=== PATIENT | female | born 1990 | race Two or more races ===

== ENCOUNTER 2020-03-04 19:07 | Emergency (ER) | payer SELFPAY ==
[~2020-03-04] VITALS: Ht 162.6 cm; Wt 63.5 kg
[2020-03-04 19:24] VITALS: BP 118/72
--- NOTE | 2020-03-04 19:24 | NUR ---
ED Nurse Note: pt ambulatd into ed from home CO right toe pain d/t previous s/p abcess cx by s/p toe nail grown improperly. Pt states pain 6/10 and states that toe still causes significant discomfort when ambulating. Pt denies taking meme medication or antibiotic d/t lack of medical insurance. Awaiting ERMD at bedside. pt vss no ss of distress noted. pt aao x 4, tamazight speaking only.
--- NOTE | 2020-03-04 19:30 | NUR ---
ED Nurse Note: ERMD at beside.[employer] front office supervisor utilized d/t language barrier. [employer] name Leighton, #[id number]. Pt informed of plan of care and was given instructions for care at home.
[2020-03-04] MEDS ORDERED: CEPHALEXIN500 MG ORAL (19:41)
[2020-03-04 19:45] VITALS: BP 118/72
--- NOTE | 2020-03-04 19:45 | Emergency Room Report ---
History of Present Illness General Chief Complaint: Skin Rash/Abscess Source: Patient Present Illness HPI Disclaimer: Please note that this report is being documented using DRAGON technology. This can lead to erroneous entry secondary to incorrect interpretation by the dictating instrument. HPI: 21-year-old female presents for evaluation of a foot infection. 2 weeks ago the patient was cutting her toenails and cut the lateral aspect of the right great toe too short and eventually ripping off the lateral corner of it. She has been cleaning with peroxide. Notes that it was initially healing however she has had worsening pain and redness over the lateral aspect of the toe. Today she felt there was a retained piece of nail that she tried to remove. She caused some bleeding and brought in for evaluation. Denies tracking erythema, fever, chills, swelling. No other injury. Allergies: Coded Allergies: No Known Allergies (Unverified , 03/04/20) COVID-19 Screening Contact w/high risk pt: No Recent Travel to affected area: No Experienced COVID-19 symptoms?: No Patient History Past Surgical History: none Pertinent Family History: none Last Menstrual Period: 02/10/20 Nursing Documentation-[facility] Past Medical History: No Stated History Review of Systems All Other Systems: negative except mentioned in HPI Physical Exam Vital Signs Date Time Temp Pulse Resp B/P (MAP) Pulse Ox O2 Delivery O2 Flow Rate FiO2 03/04/20 19:14 98.4 66 18 118/72 (87) 96 Room Air General: Awake and alert, no acute distress HEENT: NC/AT. EOMI. Resp: Normal work of breathing Skin: Intact. The lateral corner of the toenail has avulsed on the right great toe. Minor bruising. Surrounding erythema without obvious deep space fluid collection. No drainage, no ulcers. MSK: Normal tone and bulk. Moving all extremities. No obvious deformity. Neuro: Awake and alert. Mentating appropriately Medical Decision Making Diagnostic Impression: Primary Impression: Toenail avulsion Additional Impression: Cellulitis ER Course Is a 29-year-old female presenting for evaluation of toe pain. History and physical exam are consistent with an avulsed nail with surrounding cellulitis. Patient appears to have re-traumatize the area trying to remove a piece of nail today. There is no evidence of paronychia or deep space infection at this time. The patient is otherwise well-appearing. Will continue wound care at home and I advised her to allow the nail to grow out fully and to no longer cut her nails as short or to rip the nails as it could cause repeat injury, infection. Will start on Keflex for what appears to be a developing cellulitis. Discussed reasons to return to the emergency department. She understands and agrees with this treatment plan. Last Vital Signs Date Time Temp Pulse Resp B/P (MAP) Pulse Ox O2 Delivery O2 Flow Rate FiO2 03/04/20 19:14 98.4 66 18 118/72 (87) 96 Room Air Disposition: HOME, SELF-CARE Condition: Stable Scripts Cephalexin* (KEFLEX*) 500 Mg Capsule 500 MG ORAL EVERY 12 HOURS, #14 CAP 0 Refills Prov: Yamil Knutson MD 03/04/20 Referrals: Cathy Torres [facility] Patient Instructions: Ingrown Toenail Additional Instructions: Take medication as prescribed. Please follow-up with your primary care doctor in the next 1 to 3 days to discuss this emergency department visit and for reevaluation. If you have any new or worsening symptoms please return to the emergency department for reevaluation. Please note that this report is being documented using [employer] technology. This can lead to erroneous entry secondary to incorrect interpretation by the dictating instrument. Yamil Knutson MD March 04, 2020 19:45
--- NOTE | 2020-03-04 19:45 | NUR ---
ER DISCHARGE NOTE: Patient is cleared to be discharged home per ERMD, pt is aox4, 99% on room air, with stable vital signs. pt was given dc and prescription instructions, pt was able to verbalize understanding, pt id band remoed. pt is able to ambulate with steady gait. pt took all belongings.
== END 2020-03-04 19:45 | disposition home or self-care (01) ==
LOC: EMR 19:45
DX: S91.201A Unspecified open wound of right great toe with damage to nail, initial encounter (principal); L03.031 Cellulitis of right toe; X58.XXXA Exposure to other specified factors, initial encounter; Y92.9 Unspecified place or not applicable
CPT/HCPCS: 99282